=== PATIENT | female | born 1955 | race Caucasian/White ===

== ENCOUNTER → 2018-01-17 | Outpatient (CLI) | payer BC, OTHER | LOC: M.RAD 12-28 14:12 | DX: Z12.31 Encounter for screening mammogram for malignant neoplasm of breast (principal); M85.89 Other specified disorders of bone density and structure, multiple sites; Z78.0 Asymptomatic menopausal state ==

== ENCOUNTER → 2018-04-19 | Outpatient (CLI) | payer BC, OTHER | LOC: M.LAB 14:03 | DX: R94.5 Abnormal results of liver function studies (principal) ==

== ENCOUNTER → 2019-03-30 | Outpatient (CLI) | payer MEDICARE, BC, OTHER | LOC: M.RAD 09:37 | DX: Z12.31 Encounter for screening mammogram for malignant neoplasm of breast (principal) ==

== ENCOUNTER → 2019-12-19 | Outpatient (CLI) | payer MEDICARE, BC, OTHER | LOC: M.RAD 11:00 | PROVIDERS: ATTEND Registered Nurse Diabetes Educator | DX: J98.01 Acute bronchospasm (principal); R05 Cough ==

== ENCOUNTER → 2020-04-22 | Outpatient (CLI) | payer MEDICARE, BC, OTHER ==
--- NOTE | 2020-04-22 11:00 | 2DMMODE ---
[place] [address] 2 D/M-MODE ECHOCARDIOGRAM Name: UMESHSTUARTLASHONDA Room: [facility]#: [id number] Admission: 04/22/20 Attend Phys: KUNAL Kapoor Discharge: Date of : 51 Date of Service: 04/22/20 1100 Report #: [id number] THIS REPORT FOR: cc: Paola Lama Tammy RNP Holkins, John M. MD [facility] ~ APPROVED REPORT Study performed: 04/22/2020 07:49:21 EXAM: Comprehensive 2D, Doppler, and color-flow Echocardiogram Patient Location: Out-Patient BSA: 1.81 HR: 85 bpm BP: 110/74 mmHg Other Information Study Quality: Good Indications Hypertension/HDD 2D Dimensions IVSd: 10.90 (7-11mm) LVOT Diam: 19.49 (18-24mm) LVDd: 41.22 mm PWd: 9.90 (7-11mm) Ascending Ao: 28.14 (22-36mm) LVDs: 25.23 (25-40mm) Aortic Root: 26.63 mm Volumes Left Atrial Volume (Systole) LA ESV Index: 10.60 mL/m2 Aortic Valve AoV Peak Oracio.: 1.10 m/s AO Peak Gr.: 4.84 mmHg LVOT Max P.11 mmHg AO Mean Gr.: 2.73 mmHg LVOT Mean P.63 mmHg LVOT Max V: 0.88 m/s AO V2 VTI: 22.43 cm LVOT Mean V: 0.59 m/s ADDIE (VTI): 2.47 cm2 LVOT V1 VTI: 18.58 cm Mitral Valve E/A Ratio: 0.86 [place] [address] 2 D/M-MODE ECHOCARDIOGRAM Name: LASHONDA LUU Room: [facility]#: [id number] Admission: 04/22/20 Attend Phys: KUNAL Kapoor Discharge: Date of : 51 Date of Service: 04/22/20 1100 Report #: [id number] MV Decel. Time: 169.90 ms MV E Max Oracio.: 0.61 m/s MV PHT: 49.27 ms MVA (PHT): 4.47 cm2 TDI E/Lateral E': 7.63 E/Medial E': 8.71 Medial E' Oracio.: 0.07 m/s Lateral E' Oracio.: 0.08 m/s Pulmonary Valve PV Peak Oracio.: 0.95 m/s PV Peak Gr.: 3.64 mmHg Left Ventricle The left ventricle is normal size. There is normal LV segmental wall motion. There is normal left ventricular wall thickness. Left ventricular systolic function is normal. The left ventricular ejection fraction is within the normal range. LVEF is 60-65%. Grade I - abnormal relaxation pattern. Right Ventricle The right ventricle is normal size. The right ventricular systolic function is normal. Atria The left atrium size is normal. The right atrium size is normal. Aortic Valve The aortic valve is normal in structure. Trace aortic regurgitation. There is no aortic valvular stenosis. Mitral Valve The mitral valve is normal in structure. Trace mitral regurgitation. No evidence of mitral valve stenosis. Tricuspid Valve The tricuspid valve is normal in structure. There is no tricuspid valve regurgitation noted. Pulmonic Valve The pulmonary valve is normal in structure. There is no pulmonic valvular regurgitation. Great Vessels The aortic root is normal in size. IVC [place] [address] 2 D/M-MODE ECHOCARDIOGRAM Name: LASHONDA LUU Room: [facility]#: [id number] Admission: 04/22/20 Attend Phys: KUNAL Kapoor Discharge: Date of : 51 Date of Service: 04/22/20 1100 Report #: [id number] collapses >50% with inspiration. Pericardium There is no pericardial effusion. <Conclusion> The left ventricle is normal size. There is normal left ventricular wall thickness. Left ventricular systolic function is normal. The left ventricular ejection fraction is within the normal range. LVEF is 60-65%. Grade I - abnormal relaxation pattern. The right ventricle is normal size. The left atrium size is normal. The aortic valve is normal in structure. Trace aortic regurgitation. There is no aortic valvular stenosis. The mitral valve is normal in structure. The tricuspid valve is normal in structure. IVC is normal in size and collapses >50% with inspiration. There is no pericardial effusion. There is normal LV segmental wall motion. <ELECTRONICALLY SIGNED> By: Leandro Gonzalez MD, FACC 04/22/201099 1100 99 Leandro Gonzalez MD, FACC /INF
--- NOTE | 2020-04-22 18:27 | CARDNUC ---
[place] [address] CARDIAC NUCLEAR IMAGING REPORT Name: LASHONDA LUU Room: [facility]#: [id number] Admission: 04/22/20 Attend Phys: KUNAL Kapoor Discharge: Date of : 51 Date of Service: 04/22/20 1827 Report #: [id number] THIS REPORT FOR: cc: Paola Lama Tammy RNP Biggs, F. Douglas MD [facility] ~ APPROVED REPORT Study performed: 04/22/2020 11:41:39 Exam: Nuclear Stress Test Indication: CASTELLANO, Palpitations, Racing Heart feeling. Patient Location: Out-Patient Stress Tech: Nydia Piña Stress Nurse: Sherin Fernández Tech:SASHA Erazo Ht: 5 ft 4 in Wt: 167 lbs BSA: 1.81 m2 BMI: 28.66 Medical History Medical History: CASTELLANO, palpitations, racing heart feeling, COPD, asthma, DM II-insulin, HTN, HLD, past smoker. Medications: Amlodipine, ASA 81 Mg, Atorvastatin. Allergies: PNC, trulicity, metformin, ozempic. Cardiac Risk Factors: Age, Diabetes (insulin), FHX of CAD, HTN, Hyperlipidemia, SOB, Past Smoker, palpitations/racing heart feeling. Previous Cardiac Procedures: None Pretest Chest Pain Characteristics: No chest pain Exercise History: Physically active Physical Disabilities: Breathing difficulty. Meds Held (24 hrs): None Stress Test Details Stress Test: Exercise stress testing was performed using a Jesus protocol. HR Resting HR: 84 bpm Max Heart Rate (APMHR): 154 bpm Max HR Achieved: 148 bpm Target HR (85% APMHR): 130 bpm % of APMHR: 96 Recovery HR: 107 bpm HR response to stress: [place] [address] CARDIAC NUCLEAR IMAGING REPORT Name: LASHONDA LUU Herminia Room: [facility]#: [id number] Admission: 04/22/20 Attend Phys: KUNAL Kapoor Discharge: Date of : 51 Date of Service: 04/22/20 1827 Report #: [id number] Resting BP: 132/71 mmHg Max BP: 187/71 mmHg BP response to stress: Abnormal hypertensive response to stress. ECG Resting ECG: Sinus Rhythm, normal EKG Stress ECG: Sinus Tachycardia normal EKG and unchanged from above ST Change: None Arrhythmia: None Recovery ECG: Sinus tachycardia, normal EKG and unchanged from above Recovery ST Change: None Recovery Arrhythmia: VPC Clinical Reason for Termination: Completed protocol, Maximal effort, Patient Request Stress Symptoms: Dyspnea, leg fatigue, lightheadedness. Exercise duration: 7 min 01 sec Exercise capacity: 7.85 METs Overall Exercise Capacity for Age: Superior Nurse Comments A 64 year old female presented for a Treadmill Nuclear Stress Test r/t racing heart feeling, palpitations, CASTELLANO. Treadmill tolerated to Stage 3, target HR achieved. Recovery unremarkable. Patient was stable and stated she felt good when escorted to Nuclear Medicine for imaging. Superior exercise capacity. NM EXAM: Myocardial Perfusion REST/STRESS Imaging Protocol: Rest Tc-99m/Stress Tc-99m 1 day Resting Data Rest SPECT myocardial perfusion imaging was performed in supine position 30 minutes following the intravenous injection of 11.4 mCi of Tc-99m Sestamibi. Time of rest injection: 1005 Date: 04/22/2020 The images were gated to evaluate regional wall motion and calculate left ventricular ejection fraction. Administration Route: IV Administration Site: Right [place] [address] CARDIAC NUCLEAR IMAGING REPORT Name: LASHONDA LUU Herminia Room: [facility]#: [id number] Admission: 04/22/20 Attend Phys: KUNAL Kapoor Discharge: Date of : 51 Date of Service: 04/22/20 1827 Report #: [id number] At peak stress, the patient was injected intravenously with 33.1mCi of Tc-99m Sestamibi. Time of stress injection: 1150 Date: 04/22/2020 Administration Route: IV Administration Site: Right Hand Gated Stress SPECT was performed 30 minutes after stress injection. The images were gated to evaluate regional wall motion and calculate left ventricular ejection fraction. Prone imaging was performed. Study Quality Study: Good Artifact: No artifact Lung Uptake: Normal Study Data At rest, the left ventricular ejection fraction was 85%.. Post stress, the left ventricular ejection was 73%.. SSS: 1 SRS: 0 SDS: 1 TID = 0.87. Perfusion Prone images were obtained and were normal Normal perfusion on both the stress and rest images. Images were reviewed using [employer]. Wall Motion Normal left ventricular wall motion. Nuclear Conclusion ECG Findings: negative for ischemia Clinical Findings: negative for ischemia Nuclear Findings: negative for ischemia Exercise Capacity: Superior Left Ventricular Function: normal Risk Study: low Normal study. No scintigraphic evidence for myocardial ischemia or scar. <ELECTRONICALLY SIGNED> By: Francoise Penaloza MD, FACC 04/22/201826 26 26 Francoise Penaloza MD, FACC /INF
== END ==
LOC: M.NUC 04-09 12:03 → M.CRD 07:37 → M.NUC 10:00
PROVIDERS: ATTEND Registered Nurse Diabetes Educator
DX: Z12.31 Encounter for screening mammogram for malignant neoplasm of breast (principal); I10 Essential (primary) hypertension; Z78.0 Asymptomatic menopausal state; E11.9 Type 2 diabetes mellitus without complications; E78.2 Mixed hyperlipidemia; J44.9 Chronic obstructive pulmonary disease, unspecified; R00.2 Palpitations; R06.00 Dyspnea, unspecified; Z87.891 Personal history of nicotine dependence